=== PATIENT | female | born 1960 | race Asian ===

== ENCOUNTER 2020-07-28 15:55 | Emergency (ER) | payer OTHER, SELFPAY ==
[~2020-07-28] VITALS: Ht 157.5 cm; Wt 57.2 kg
[2020-07-28 15:59] VITALS: Ht 157.5 cm; Wt 57.2 kg
[2020-07-28 16:38] VITALS: BP 156/87
== END 2020-07-28 16:38 | disposition home or self-care (01) ==
LOC: ED 15:55
DX: U07.1 COVID-19 (principal); E11.9 Type 2 diabetes mellitus without complications; E78.00 Pure hypercholesterolemia, unspecified
CPT/HCPCS: U0003

== ENCOUNTER 2020-08-02 10:48 | Emergency (ER) | payer OTHER ==
[~2020-08-02] VITALS: Ht 157.5 cm; Wt 54.9 kg
[2020-08-02 14:22] VITALS: BP 161/85
[2020-08-02] MEDS ORDERED: COZAAR100 MG PO (22:03)
[2020-08-02] MEDS ORDERED: FENOFIBRATE130 M1 PO (22:06)
[2020-08-02] MEDS ORDERED: VYTORIN1 TAB PO (22:07)
[2020-08-02] MEDS ORDERED: FORTAMET500 M1 PO (22:08)
[2020-08-02] MEDS ORDERED: EVI60 PO (22:08)
== END 2020-08-02 14:22 | disposition home or self-care (01) ==
LOC: ED 10:48
DX: J98.11 Atelectasis (principal); U07.1 COVID-19; I10 Essential (primary) hypertension; E11.9 Type 2 diabetes mellitus without complications; E78.00 Pure hypercholesterolemia, unspecified

== ENCOUNTER 2020-08-02 16:32 | Inpatient (IN) | payer OTHER, SELFPAY ==
[~2020-08-02] VITALS: Ht 157.5 cm; Wt 58.5 kg
[2020-08-02 16:50] VITALS: Ht 157.5 cm; Wt 58.5 kg
--- NOTE | 2020-08-02 17:35 | NUR ---
PT WALKED TO ROOM WITHCO SOB INCREASED. HX OF COVID+. DM. PT WAS JUST D/C'D HOME FROM HOSPITAL. FEELING OF SOB INCREASED THEN COME BACK. PT WAS A/OX4, SPEAKS FULL SENTENCES, FOLLOWS COMMAND, SOB, BUT BREATHING EVEN. DENIES ABD PAIN. PT AMBULATES FREELY ON FLOOR.
--- NOTE | 2020-08-02 18:39 | NUR ---
SWAP DONE. URINE SAMPLE COLLECTED AND SENT.
[2020-08-02 18:41] LABS: BASOPHIL % 0.2 % (0-2); PLATELET COUNT 277 x10^3mcL (130-400); RED CELL DISTRIBUTION WIDTH 13.1 % (11.5-14.5)
[2020-08-02 19:03] LABS: CALCIUM 10.4 mg/dL (8.5-10.1); CARBON DIOXIDE 23.9 mmol/L (21-32); CHLORIDE SERUM 100 mmol/L (98-107); CREATININE SERUM 0.9 mg/dL (0.6-1.0); GFR1 > 60 mL/min; GLUCOSE SERUM 117 mg/dL (74-106); POTASSIUM SERUM 4.2 mmol/L (3.5-5.1); SODIUM SERUM 136 mmol/L (136-145)
--- NOTE | 2020-08-02 19:05 | NUR ---
REPORT RECEIVED FROM SALES FLOOR TEAM LEADER FOR CONTINUITY OF CARE. PATIENT IN ISOLATION ROOM. STABLE CONDITION.
[2020-08-02 19:12] LABS: ALBUMIN 4.1 g/dL (3.4-5.0); ALKALINE PHOSPHATASE 62 U/L (46-116); ALT/SGPT 60 U/L (14-59); AST/SGOT 48 U/L (15-37); BILIRUBIN TOTAL 0.32 mg/dL (0.20-1.00); C REACTIVE PROTEIN 2.2 mg/dL (<=0.9); LACTIC DEHYDROGENASE (LDH) 241 U/L (100-190); TOTAL PROTEIN, SERUM 8.2 g/dL (6.4-8.2)
[2020-08-02 19:21] LABS: microscopic required? NO
[2020-08-02 19:33] LABS: UA SPECIFIC GRAVITY >=1.030 (1.005-1.035); urine erythrocyte NEGATIVE (NEGATIVE)
--- NOTE | 2020-08-02 21:03 | NUR ---
PATIENT EXPRESSED DIFFICULTY BREATHING. PATIENT REQUESTED OXYGEN ON NASAL CANNULA. PLACED PATIENT ON 2L NC
--- NOTE | 2020-08-02 21:30 | NUR ---
REPORT GIVEN TO GRACIELA GARCIA FOR CONTINUITY OF CARE. PATIENT AWARE OF ADMISSION.
[2020-08-02] MEDS ORDERED: COZAAR100 MG PO (22:03)
[2020-08-02] MEDS ORDERED: FENOFIBRATE130 M1 PO (22:06)
[2020-08-02] MEDS ORDERED: VYTORIN1 TAB PO (22:07)
[2020-08-02] MEDS ORDERED: EVI60 PO (22:08)
[2020-08-02] MEDS ORDERED: FORTAMET500 M1 PO (22:08)
[2020-08-02 23:02] VITALS: BP 124/66
--- NOTE | 2020-08-02 23:16 | NUR ---
REC'D PT FROM ED VIA [facility]H ACCOMPANIED BY RN. PT ADM WITH CC OF SOB R/T COVID, BODY ACHES, CHILLS. AAOX4, SPEECH CLEAR, FOLLOWS COMMANDS. TELE 7. DENIES CP, DIZZINESS, OR PALPITATIONS. C/O MILD GIBSON (TOLERABLE) AND SOB UPON AMBULATION. REPORTS PRODUCTIVE COUGH- UNKNOWN SPUTUM COLOR. ABD SOFT/ROUND. DENIES ABD PAIN, TENDERNESS, OR N/V. C/O DIARRHEA. VOIDING FREELY. AMBULATORY. SKIN INTACT. IV TO LAC, SITE WNL. CALL LIGHT WITHIN REACH, BED AT LOWEST POSITION. ORIENTED TO DEVICES AND SURROUDNINGS. REPORT GIVE TO GENE OWENS.
--- NOTE | 2020-08-03 01:49 | NUR ---
PT IS A NEW ADMIT FROM ED WITH DX +COVID. A/O X 4 AND IN NO ACUTE DISTRESS. PT WITH DRY COUGH BUT ON ROOM AIR WITH O2 SAT WNL. TELE SR. ORIENTED PT TO ROOM AND INSTRUCTED TO USE CALL LIGHT TO CALL FOR ASSISTANCE. NORMAL SALINE GIVEN FOR CONTACT LENSES. WILL CONTINUE TO MONITOR.
[2020-08-03 05:57] VITALS: BP 116/65
--- NOTE | 2020-08-03 06:29 | NUR ---
PT CURRENTLY RESTING IN BED IN NO ACUTE DISTRESS. VITAL SIGNS STABLE. NO COMPLAINTS OF PAIN OR DISCOMFORT. BLOOD SUGAR 99.
[2020-08-03 07:06] LABS: BASOPHIL % 0.5 % (0-2); PLATELET COUNT 242 x10^3mcL (130-400)
[2020-08-03 08:53] VITALS: BP 111/66
[2020-08-03 12:15] VITALS: BP 111/70
--- NOTE | 2020-08-03 13:47 | NUR ---
The patient was seen sleeping at the time of shift change. She is alert and oriented x4. The patient states she is fatigued. Vital signs taken, temp. of 100.0F, O2 sat.= above 94%, no SOB noted, the patient says she has generalized aches all throughout her body. I gave her tylenol 650mg. po. per MD orders. The patient made comfortable. Re-checked temperature= 98.2F after 45 minutes. The patient is currently sleeping. Blood sugar checked= 92 at 11:30AM. Encouraged the patient to eat lunch. Will continue to monitor. Call light within reach.
--- NOTE | 2020-08-03 14:45 | NUR ---
Explained to patient that she has NORCO 5/325mg. po. every 4 hours as needed for moderate to severe pain. She verbalized underestanding. Refused the [place] for now. Will continue to monitor patient. Call light within reach.
--- NOTE | 2020-08-03 16:22 | NUR ---
THE PATIENT COMPLAINED OF HEADACHE AND SHOULDER PAIN WELL, 7/10 PAIN. GAVE NORCO PER MD ORDERS FOR NEEDED PAIN MEDICATION. VITAL SIGNS TAKEN, ALL WITHIN NORMAL LIMITS. SHE IS ALERT AND ORIENTED X4. SHE HAS NO SOB NOTED, O2 SATURATION IN ROOM AIR IS 95%. THE PTIENT STATES THAT SHE FEELS BETTER AFTER 30-45 MINUTES AFTER THE NORCO WAS GIVEN. PATIENT MADE COMFORTABLE. CALL LIGHT WITHIN REACH.
[2020-08-03 17:36] VITALS: BP 111/56
--- NOTE | 2020-08-03 19:30 | NUR ---
RECEIVED PT FROM DAY SHIFT RN. PT AA&O X4. PT DENIES CHEST PAIN OR DISCOMFORT AT THIS TIME. PULSES REGULAR AND NO EDEMA NOTED. LUNG SOUNDS CLEAR UPPER LOBES, DIMINISHED BASES. PT ON ROOM AIR WITH O2 SAT94%.BOWEL SOUNDS ACTIVE ALL 4 HOANG. PT APPEARS WEAK. AMBULATORY WITH MINIMAL ASSISTING. IV SITE INTACT AND PATENT, NO REDNESS OR SWELLING NOTED. INSTRUCTED PT TO USE CALL LIGHT AND PHONE. WILL CONTINUE TO [id number] PT.
--- NOTE | 2020-08-03 21:25 | NUR ---
PT C/O BODY ACHING 5/10, MEDICATION TYLENOL PO GIVEN. WILL MONITOR PT.
[2020-08-03 21:35] VITALS: BP 107/60
--- NOTE | 2020-08-03 22:29 | NUR ---
RECHECKED ON PT. PT RESTING IN BED. NO S/S OF DISTRESS NOTED. PT RESPRATION EVEN, NO SOB NOTED.
[2020-08-04 05:33] VITALS: BP 112/67
--- NOTE | 2020-08-04 06:52 | NUR ---
PT RESTING WELL DURING SHIFT. NO S/S OF DIRSTRESS NOTED. DENIES CHEST PAIN OR SOB AT THIS TIME. CALL LIGHT WITHIN REACH. WILL ENODRSE CARE TO DAY SHIFT RN.
--- NOTE | 2020-08-04 07:30 | NUR ---
RECEIVED PATIENT IN BED IN ISOLATION FOR COVID+. ALERT AND ORIENTED, GENERALIZED WEAKNESS NOTED. HL PATENT FLUSHED WELL. RESP EVEN AND UNLABORED ON ROOM AIR. LUNGS DIMIINISHED. PATIENT C/O SOB ON EXERTION. POOR APPETITE. TEMP 101.1. WILL START COOLING MEASURES AND GIVE TYLENOL. NO ACUTE DISTRESS NOTED WILL CONTINUE TO MONITOR.
[2020-08-04 07:34] LABS: BASOPHIL % 0.4 % (0-2); PLATELET COUNT 233 x10^3mcL (130-400); RED CELL DISTRIBUTION WIDTH 13.2 % (11.5-14.5)
[2020-08-04 08:31] VITALS: BP 123/74
[2020-08-04 12:18] VITALS: BP 115/70
--- NOTE | 2020-08-04 14:09 | NUR ---
PATIENT REMAINS IN BED. TEMP NOW IS 98.3. APPEARS TO BE RESTING WELL AT THIS TIME. NO ACUTE RESP DISTRESS NOTED. WILL CONTINUE TO MONITOR.
--- NOTE | 2020-08-04 16:11 | NUR ---
PATIENT'S PLAN OF CARE WAS DISCUSSED AND REVIEWED WITH DINING SERVICE SUPERVISOR:KORIN TONY. I HAVE REVIEWED THE DATA COLLECTION BY DINING SERVICE SUPERVISOR (NAME):KORIN TONY. ENTERED ON (DATE/TIME):08/04/20. I CONCUR WITH THE DATA AND ANY EXCEPTIONS OR COMMENTS ARE LISTED BELOW:
[2020-08-04 17:25] VITALS: BP 133/74
--- NOTE | 2020-08-04 17:43 | NUR ---
PATIENT'S TEMP IS 102.2. COOLING MEASURES STARTED AND TYLENOL PO GIVEN. WILL MONITOR FOR EFFECT.
--- NOTE | 2020-08-04 18:43 | NUR ---
PAITENT IN BED WITH COOLING MEASURES IN PROGRESS. PATIENT REFUSED DINNER TRAY AT THIS TIME.
[2020-08-04 21:16] VITALS: BP 120/66
--- NOTE | 2020-08-04 22:54 | NUR ---
LATE ENTRY 19:50 PT RECEIVED LYING IN BED ON L SIDE RESTING. PT APPEARS FATIGUE AND HAS MUILD GENERALIZED WEAKNESS BUT REMAINS AMBUALTORY WITH STEADY GAIT. A/OX4, CALM AND COOPERATIVE. TELE 7, SR, HR 78, DENIES CHEST PAIN, DIZZINESS AND LIGHTHEADEDNESS. RESPIRATIONS EVEN UNLABORED, RA, LUNG SOUNDS DIMINSHED TO BILATERAL BASES, DRY COUGH. PT REPORTS SOB WITH EXERTION BUT DENIES SOB AT REST. PT DENIES N/V/CONSTIATIOIN/DIARRHEA. DENIES URINARY ISSUES. SKIN INTACT. DENIES PAIN. SL LAC 22G, PATENT, NO COMPLICATIONS TO SITE. BED IN LOWETS POSITOIN, SIDE RAILS X 2, CALL LIGHT WITHIN REACH
[2020-08-05 05:15] VITALS: BP 110/67
--- NOTE | 2020-08-05 06:12 | NUR ---
PT SLEEPING ON L SIDE, EASILY AROUSABLE TO VERBAL STIMULI. PT REMAINS A/OX4 AND ON RA SATING 93%. PT DENIES SOB AT REST. TELE 7, LEADS IN PLACE, NSR. NO FALLS OR INJURIES SUSTAINED DURING SHIFT. PT C/O PAIN X 1 TO HEAD AND NECK, NORCO 5/325MG ADMISNTERED ORDERED. CXR COMPLETED. BED IN LOWEST POSITION, SIDE RAILS X 2, CALL LIGHT WITHIN REACH
[2020-08-05 06:52] LABS: BASOPHIL % 0.4 % (0-2); PLATELET COUNT 264 x10^3mcL (130-400); RED CELL DISTRIBUTION WIDTH 13.1 % (11.5-14.5)
[2020-08-05 07:17] LABS: C REACTIVE PROTEIN 2.3 mg/dL (<=0.9)
--- NOTE | 2020-08-05 07:30 | NUR ---
RECEIVED PAIENT IN BED IN ISOLATION FOR + COVID. ALERT AND ORIENTED GENERALIZED WEAKNESS NOTED. HL PATENT LEFT A/C. RESP EVEN AND UNLABORED, LUNGS DIMINISHED. DRY COUGH NOTED, SOB ON EXERTION. ON ROOM AIR, SAT 93%. WILL CONTINUE TO MONITOR.
[2020-08-05 08:51] VITALS: BP 129/74
[2020-08-05 11:13] VITALS: BP 122/70
--- NOTE | 2020-08-05 12:03 | NUR ---
PATIENT'S PLAN OF CARE WAS DISCUSSED AND REVIEWED WITH CLASSROOM INSTRUCTIONAL AIDE:KORIN TONY. I HAVE REVIEWED THE DATA COLLECTION BY CLASSROOM INSTRUCTIONAL AIDE (NAME):KORIN TONY. ENTERED ON (DATE/TIME):08/05/20. I CONCUR WITH THE DATA AND ANY EXCEPTIONS OR COMMENTS ARE LISTED BELOW:
--- NOTE | 2020-08-05 14:09 | NUR ---
Intervention/RDN Recommendation(s): 1) Continue regular diet (BG controlled) 2) Add glucerna BID (chocolate flavor per pt's preference) 3) Consider CCHO diet, if needed.
--- NOTE | 2020-08-05 14:09 | NUR ---
Initial Nutrition Assessment- Alea Chew RM 228B, HR Dx: COVID, PNA PMHx: HTN, DM, high cholesterol PSHx: (MYAH-BSO, trigger finger sx) Labs: glucose: 117H, no A1C available Meds: cozaar, decadron, D50% PRN, Humulin, lovenox, norco, Tessalon perles, robitussin DM syrup, tricor, Tylenol, zetia Diet: regular PO Intakes: no nutrition flowsheets available Ht: 157.48 cm, 5 ft 2 inch Wt: 58.513 kg/128.7 lbs BMI: 23.6 kg/m2 IBW: 110 (99-121 lbs) %IBW: 117% UBW: unknown Age: 60 Food Allergies: NKFA Skin: intact, Mtat: 17 Edema: none GI: ABD soft bowel sounds active, last BM: 08/03 Note (08/05/20): per H&P- "60 year old [place] female with PMH of HTN, DM, high cholesterol presenst to ER with 3 days of fevers, chills, generalized weakness, cough, body aches, diarrhea, and SOB. No loss of taste or smell. She has family members who had COVID 19 and she herself tested positive yesterday. She was seen in ER yesterday and was sent home but developed fever, chills and SOB and was brought back to ER. In ER, BP 123/75, HR 93 bpm, temp 100.2 F, SpO2 93% RA. Labs: WBC 4.6, hgb 12.7, d-dimer <100, coronavirus PCR positive. Influenza A&B negative. CXR - small peripheral patchy infiltrates." At time of visit, pt's nurse was in the COVID area. Called pt as nursing station. Pt reported sometimes it is difficult to eat from coughing. Pt's nurse also reported pt has a hard time eating when pt is fatigued. Pt's nurse also reported pt ate a little more today than yesterday. Pt wants to try glucerna shake in chocolate flavor to aid in PO intake. Trigger: potential risk DX, poor PO intake > 3 days Problem with: N/V/D/C: no N/V/D per pt Problems with: Chewing/Swallowing: no Current appetite: pt reported food isn't appetizing, no loss of taste per pt Recent wt changes: unknown %wt change: n/a Vitamin/Supplement: pt reported she was taking vitamin C, zinc and not sure if pt reported she took vitamin D or vitamin E. it was difficult to hear the pt on the phone. Special Diet at Home: regular diet at home Physical activity: per pt she was starting to exercise, but stopped, unsure what type of exercise due to not being able to hear pt on the phone Education: no education provided to the pt at this time due to pt in isolation, difficulty hearing pt on the phone Estimated Nutritional Needs Based on IBW of 110 lbs (50 kg) Energy: 0459-1502 kcal/d (30-35 kcal/kg for infection) Protein: 50-65 (1.0-1.3 g/kg for infection) Fluid: 1383-7431 mL/d (1 mL/kcal) or per MD Nutrition Diagnosis 1) increased protein and energy needs related to infection as evidenced by COVID-19 diagnosis, coronavirus PCR positive 2) inadequate oral intake related to infection as evidenced by lack of appetite, food does not seem appetizing per pt, coughing & fatigue Intervention/RDN Recommendation(s): 1) Continue regular diet (BG controlled) 2) Add glucerna BID (chocolate flavor per pt's preference) 3) Consider CCHO diet, if needed. Monitor/Evaluate Goal: have pt meet 75% of estimated nutrient needs (not met, ongoing) Monitor: PO intake, Labs, Skin integrity, Weights. F/U in 3-5 days as MR on 08/08-
[2020-08-05 16:37] VITALS: BP 115/71
--- NOTE | 2020-08-05 16:58 | NUR ---
PATIENT REMAINS IN BED TALKING ON HER PHONE. ALERT AND ORIENTED. O2 SAT 92% ON ROOM AIR. PATIENT INSTRUCTED TO PRONE INSTRUCTED. PATIENT VERBALIZES UNDERSTANDING, BUT WILL ONLY TURN SLIGHTLY TO HER SIDE AT THIS TIME. NO COOPERATING WITH SITTING UP OR PRONING. REQUIRES FREQUENT REMINDERS AND ENCOURAGEMENT. CONTINUES TO HAVE OCCAS DRY COUGH.
--- NOTE | 2020-08-05 18:33 | NUR ---
PATIENT COUGHING MEDICATED WITH ROBITUSSIN ORDERED. CALL PLACED TO DR GRACE FOR R.T. PROTOCOL., NEW ORDER RECEIVED FOR R.T. PATIENT STILL REFUSES TO PRONE. WILL SIT UP IN BED, AND TURN ON HER SIDE. REQUIRES MUSH ENCOURAGEMENT.
[2020-08-05 19:18] VITALS: BP 115/71
--- NOTE | 2020-08-05 20:01 | NUR ---
IN BED NO RESP DISTRESS NOTED, ON RA SAT 94, TELE NSR HR 77. CALL LIGHT WITHTIN PT'S REACH .WILL CON'T TO MONITOR AND ASSIST PT WITH CARE .
[2020-08-05 21:30] VITALS: BP 101/56
--- NOTE | 2020-08-06 01:44 | NUR ---
IN BED WITH EYES CLOSED , TELE NSR .
[2020-08-06 06:15] VITALS: BP 104/59
--- NOTE | 2020-08-06 06:46 | NUR ---
NO CHANGES , PT DENY PAIN SOB , TELE NSR . HL PATENT .
[2020-08-06 07:24] LABS: BASOPHIL % 0.9 % (0-2); PLATELET COUNT 330 x10^3mcL (130-400)
--- NOTE | 2020-08-06 07:43 | NUR ---
RECEIVED PATIENT IN BED, AWAKE ALERT AND ORIENTED. HL PATENT. RESP EVEN AND UNLABORED. GENERALIZED WEAKNESS NOTED. PATIENT USING BSC PRN. NO ACUTE DISTRESS NOTED AT THIS TIME TELE 7 NSR. WILL CONTINUE TO MONITOR.
[2020-08-06 08:21] VITALS: BP 114/68
--- NOTE | 2020-08-06 09:35 | NUR ---
PATIENT IS IN BED, C/O HAVING A H/A 5/10 ON THE PAIN SCALE. MEDICATED WITH TYLENOL PO ORDERED. WILL MONITOR FOR EFFECT.
--- NOTE | 2020-08-06 12:11 | NUR ---
R.T. PLACED PATIENT ON O2 AT 2L VIA N/C. SAT 94%. PATIENT REMAINS IN BED APPEARS TO BE RESTNG WELL. NO FURTHER C/O H/A. PATIENT NON COOPERATIVE WITH PRONING. WILL CONTINUE TO ENCOURAGE.
[2020-08-06 12:12] VITALS: BP 101/63
--- NOTE | 2020-08-06 13:44 | NUR ---
PATIENT'S PLAN OF CARE WAS DISCUSSED AND REVIEWED WITH MANOMETER TECHNICIAN:KORIN TONY. I HAVE REVIEWED THE DATA COLLECTION BY MANOMETER TECHNICIAN (NAME):KORIN TONY. ENTERED ON (DATE/TIME):08/06/20. I CONCUR WITH THE DATA AND ANY EXCEPTIONS OR COMMENTS ARE LISTED BELOW:
--- NOTE | 2020-08-06 15:18 | NUR ---
PATIENT REMAINS IN BED WITH O2 ON AT 2L VIA N/C. PER PATIENT SHE IS FEELING A LITTLE BETTER WITH THE O2 ON. NO ACUTE DISTRESS NOTED. ONLY OCCAS DRY COUGH NOTED. PATIENT DECLINED COUGH MED. WILL CONTINUE TO MONITOR.
[2020-08-06 16:20] VITALS: BP 110/67
--- NOTE | 2020-08-06 18:11 | NUR ---
PATIENT REMAINS IN BED. O2 SAT 96% ON 2L VIA N/C. COUGH HAS IMPROVED. NO ACUTE DISTRESS NOTED.
--- NOTE | 2020-08-06 20:02 | NUR ---
IN BED NO RESP DISTRESS NOTED, TELE NSR , HL PATENT FLUSHING WELL , CALL LIGHT WITHIN PT'S REACH , WILL CON'T TO MONITOR AND ASSIST PT WITH CARE .
[2020-08-06 21:51] VITALS: BP 122/60
--- NOTE | 2020-08-07 03:12 | NUR ---
PT IN BED WITH EYES CLOSED , TELE NSR.
[2020-08-07 05:42] VITALS: BP 114/69
--- NOTE | 2020-08-07 06:49 | NUR ---
NO CHANGES OF CINDITION NOTED, ALL SCHEDULE MEDS GIVEN NO REACTION NOTED, TELE NSR.
[2020-08-07 08:11] VITALS: BP 108/62
[2020-08-07 08:30] LABS: BASOPHIL % 0.2 % (0-2); PLATELET COUNT 318 x10^3mcL (130-400); RED CELL DISTRIBUTION WIDTH 13.2 % (11.5-14.5)
--- NOTE | 2020-08-07 10:32 | NUR ---
RECEIVED REPORT FROM FLIGHT ENGINEER RN. PT IS ASSESSED, AO X4 LYING IN BED. PT IS ON 3L O2 VIA NC AND SATING AT 93%. PT C/O DRY COUGH AND SOB. APPEARS TO BE VERY WEAK. RUNNING SR 82 ON THE MONITOR. ALSO PT WITH POOR APPETITE, MANAGED TO EAT 25% OF HER BREAKFAST. NO C/O PAIN AT THIS TIME. WILL CONTINUE TO MONITOR O2 SATS CLOSELY THROUGHOUT THE SHIFT. CALL LIGHT IS WITHIN REACH AND PT ABLE TO CALL FOR ASSISTANCE.
[2020-08-07 12:48] VITALS: BP 125/67
--- NOTE | 2020-08-07 15:12 | NUR ---
SPOKE W/ AND INFORMED THAT LAST PCR DONE WAS AND HE DOESN'T WANT TO ORDER ANOTHER.
[2020-08-07 16:54] VITALS: BP 126/63
--- NOTE | 2020-08-07 19:30 | NUR ---
RECEIVED REPORT FROM DAY NURSE AND ALL QUESTIONS ANSWERED AND ASSUMED CARE AND TREATMENT.
--- NOTE | 2020-08-07 20:00 | NUR ---
RECEIVED PT LAYING IN BED AWAKE BUT WEAK. STATED SHES VERY WEAK.W/ NC AT 2L.MIN.TURNED TO SIDES AD DESTINY. PULSES PALPABLE. LUNGS DIMINISHED. ENCOURAGE TO DEEP BREATHING AND COUGHING.W/ POOR APPITITE.RESPIRATION NONLABORED. NO ACUTE DISTRESS NOTED.
--- NOTE | 2020-08-07 20:00 | NUR ---
RECEIVED REPORT FROM DAY NURSE AND ALL QUESTION ANSWERED AND ASSUMED CARE AND TREATMENT.
[2020-08-07 22:16] VITALS: BP 111/67
--- NOTE | 2020-08-08 03:27 | NUR ---
SLEEP AT LONG INTERVALS.NO RESPIRATORY DIFFICULTY.RESTING WELL.
[2020-08-08 05:23] LABS: BASOPHIL % 0.1 % (0-2); PLATELET COUNT 361 x10^3mcL (130-400); RED CELL DISTRIBUTION WIDTH 13.2 % (11.5-14.5)
[2020-08-08 05:58] LABS: ALKALINE PHOSPHATASE 105 U/L (46-116); ALT/SGPT 99 U/L (14-59); AST/SGOT 64 U/L (15-37); BILIRUBIN DIRECT 0.13 mg/dL (0.0-0.2); BILIRUBIN TOTAL 0.38 mg/dL (0.20-1.00); CALCIUM 9.3 mg/dL (8.5-10.1); CARBON DIOXIDE 26.1 mmol/L (21-32); CHLORIDE SERUM 103 mmol/L (98-107); CREATININE SERUM 0.8 mg/dL (0.6-1.0); GFR1 > 60 mL/min; GLUCOSE SERUM 116 mg/dL (74-106); MAGNESIUM 2.2 mg/dL (1.8-2.4); POTASSIUM SERUM 3.8 mmol/L (3.5-5.1); SODIUM SERUM 139 mmol/L (136-145); TOTAL PROTEIN, SERUM 6.9 g/dL (6.4-8.2)
[2020-08-08 06:01] LABS: ALBUMIN 2.8 g/dL (3.4-5.0)
[2020-08-08 06:16] VITALS: BP 108/63
[2020-08-08 09:00] VITALS: BP 96/57
--- NOTE | 2020-08-08 10:27 | NUR ---
RECEIVED REPORT FROM RESEARCH ADMINISTRATOR RN. PT ASSESSED, REMAINS ON 3L NC AND C/O SOB. PT APPEARS WEAK, LYING IN BED AND ONLY MANAGED TO EAT 10% OF HER BREAKFAST. PT ENCOURAGED TO EAT MORE AND TRY SITTING UP MORE. WAS ABLE TO SIGN CONSENT FOR CONV PLASMA. WILL CONTINUE TO MONITOR THROUGHOUT THE SHIFT. CALL LIGHT WITHIN REACH AND PT ENCOURAGED TO CALL FOR ASSISTANCE.
[2020-08-08 13:00] VITALS: BP 109/63
[2020-08-08 16:45] VITALS: BP 104/56
--- NOTE | 2020-08-08 16:45 | NUR ---
PT CALLED TO SAY SHE IS HAVING SOME HIVES, AND ITCHING THE WHOLE BODY. WENT TO PATIENT'S ROOM AND EVIDENTLY PATIENT WAS HAVING AN ADVERSE REACTION FROM THE PLASMA TRANSFUSION. PLASMA TRANSFUSION STOPPED, NORMAL SALINE INFUSED AND CHARGE NURSE CARIDAD MADE KNOWN. ADHESIVE BANDAGE MACHINE OPERATOR PAGED FOR SOME BENADRYL, AND NEW ORDERS RECEIVED. BENADRYL 25CC GIVEN AND PT TOLD THE ITCHY AND HIVES WILL SLOWLY START TO GO AWAY. URINE SAMPLE COLLECTED, AND THE PLASMA AND ALL TUBINGS COLLECTED TO BE SENT BACK TO THE LAB. VITAL SIGNS POST ADVERSE REACTION T97.2, HR80,BP104/56, 93% ON 3L NC AND RESP 22. WILL CONTINUE TO MONITOR PT, AND PT ENCOURAGED TO CALL CONTROL INSPECTOR LIGHT IF SHE FEELS WORSE.
[2020-08-08 18:20] LABS: microscopic required? NO
[2020-08-08 18:23] LABS: urine erythrocyte NEGATIVE (NEGATIVE)
--- NOTE | 2020-08-08 18:59 | NUR ---
PT CURRENTLY SLEEPING BUT EASILY AROUSABLE. SAYS THE ITCHING IS SO MUCH BETTER. FIRST DOSE OF REMDESIVIR STARTED. O2 SATURATION AT 96% ON 3L NC. WILL ENDORSE CARE TO INCOMING CONTROL AND RECOVERY COMBAT RESCUE RN FOR CONTINUITY OF CARE.
--- NOTE | 2020-08-08 20:00 | NUR ---
RECIEVED PATIENT IN BED RESTING. NO RESP DISTRESS NOTED. PATIENT VERY FATIGUED AND TIRED. DENIES PAIN AT THIS TIME. WILL CONTINUE TO MONITOR FOR SAFETY. Rob WAGNER RN.
[2020-08-08 21:10] VITALS: BP 95/60
[2020-08-09 05:30] VITALS: BP 99/62
--- NOTE | 2020-08-09 06:31 | NUR ---
PATIENT RESTING COMFORTBALY WITH NO RESP DISTESS NOTED. PATIENT STATES SHE SLEPT WELL THROUGH THE NIGHT. Rob WAGNER RN.
[2020-08-09 07:37] LABS: BILIRUBIN DIRECT 0.1 mg/dL (0.0-0.2); BILIRUBIN TOTAL 0.3 mg/dL (0.20-1.00); TOTAL PROTEIN, SERUM 6.4 g/dL (6.4-8.2)
[2020-08-09 07:38] LABS: ALBUMIN 2.6 g/dL (3.4-5.0)
[2020-08-09 08:21] VITALS: BP 94/50
--- NOTE | 2020-08-09 09:58 | NUR ---
PATIENT WAS LAYING IN BED ASLEEP, WOKE UP TO TAKE MORNING MEDS. PATIENT VITALS STABLE, NO RESP DISTRESS NOTED, 96% ON 2L NC. NO PAIN OR OTHER COMPLAINTS AT THIS TIME.WILL CONTINUE MONITORING.
[2020-08-09 13:19] VITALS: BP 95/57
--- NOTE | 2020-08-09 13:32 | NUR ---
PATIENT RESTING IN BED. PATIENT STATED IT IS EASIER FOR HER TO EAT FOOD THAT IS MORE BLAND BUT WOULD NOT WANT MECHANICAL SOFT. PATIENT WOULD WANT NUTRITIONAL SHAKES. V/S SIGNS, CHEST RISING SYMMETRICALLY. NO COMPLAINTS OF PAIN OR DISCOMFORT. WILL INFORM GENERAL ENGINEERING TEACHER ON PATIENTS INPUT ON HER APPETITE.
--- NOTE | 2020-08-09 16:02 | NUR ---
Follow-up Nutrition Assessment: [address] AKSHAT CIFUENTES 60F MR Dx: COVID, PNA PMHx: HTN, DM, high cholesterol Labs: (08/09) ABL 2.6L, AST 38H, ALT 83H, ALK 102H (08/08) BG 116H, * NA, K, CL, BUN, Cr, CA, Mg, WBC, RBC, H/H, PLT WNL (08/03) BH, * A1C, lipid panel no reported Meds: Remdesevir, cozaar, decadron, D50% PRN, Humulin, Lovenox, [place], Tessalon perles, Robitussin DM Syrup, Tricor, Zetia Diet: regular PO Intakes: (08/05) B: 40%, L: 50%, D: 10%, (08/06) B: 20%, (08/08) B: 50%, L: 35%, D: 20%, Average 32% x 7 meals Weights: (08/09) 58.351 kg, (08/05) 58.513 kg BM: 08/07 Skin: intact Matt: 17 Edema: no noted Per last RD note (08/05/20): per H&P- "60-year-old [place]isian female with PMH of HTN, DM, high cholesterol presenst to ER with 3 days of fevers, chills, generalized weakness, cough, body aches, diarrhea, and SOB. No loss of taste or smell. She has family members who had COVID 19 and she herself tested positive yesterday. She was seen in ER yesterday and was sent home but developed fever, chills and SOB and was brought back to ER. In ER, BP 123/75, HR 93 bpm, temp 100.2 F, SpO2 93% RA. Labs: WBC 4.6, hgb 12.7, d-dimer <100, coronavirus PCR positive. Influenza A&B negative. CXR - small peripheral patchy infiltrates." At time of visit, pt's nurse was in the COVID area. Called pt as nursing station. Pt reported sometimes it is difficult to eat from coughing. Pt's nurse also reported pt has a hard time eating when pt is fatigued. Pt's nurse also reported pt ate a little more today than yesterday. Pt wants to try Glucerna shake in chocolate flavor to aid in PO intake. RD note (08/09/20): Per progress note (08/08): pt continues 3 L NC. Unable to visit pt d/t COVID-19+. Pt's RN reported that pt does not have appetite, and she did not touch her breakfast this morning. RN reported that pt only sleeps. No n/v/d/c noted by RN. Pt's RN stated that pt coughs sometimes when eating, but no swallow difficulties have been noticed. Per RN, pt would like to try softer texture foods; such as Jello or applesauce. Estimated Nutritional Needs Based on IBW of 110 lbs (50 kg) Energy: 6985-8210 kcal/d (30-35 kcal/kg for viral infection) Protein: 50-65 (1.0-1.3 g/kg for viral infection) Fluid: 8894-3398 mL/d (1 mL/kcal) or per MD Nutrition Diagnosis 1. Increased protein and energy needs related to infection as evidenced by COVID-19 diagnosis, coronavirus PCR positive (ongoing). 2. Inadequate oral intake related to infection as evidenced by lack of appetite, food does not seem appetizing per pt, coughing & fatigue (ongoing). Intervention/RDN Recommendation(s): 1. Continue Regular diet. 2. Recommended Glucerna BID (chocolate flavor per pt's preference) for additional 440 kcal and 20 g protein 3. Consider CCHO 60 gms diet, if pt's PO intake improves 4. Recommend encourage PO intake. Monitor/Evaluate Goal: have pt meet 75% of estimated nutrient needs (not met, ongoing) Monitor: PO intake, Labs, Skin integrity, Weights. F/U in 2-3 days as high risk on 08/11-
[2020-08-09 16:16] VITALS: BP 95/57
--- NOTE | 2020-08-09 18:41 | NUR ---
PATIENT RECEIVED SECOND BAG OF RENDEZEVIR TODAY. PATIENT VITALS STABLE. PATIENT BG WAS 138 FOR 1630 NO INSULIN COVERAGE WAS NEEDED. IV IS INTACT. NO COMPLAINTS OF PAIN OR DISCOMFORT. GLUCERNA WAS GIVEN TO PATIENT AND PATIENT TOLERATED IT. ALL NEEDS MET FOR NOW. WILL ENDORSE REPORT TO [facility].
--- NOTE | 2020-08-09 20:00 | NUR ---
RECEIVED PATIENT IN BED RESTING, ON O2 2 LITER VIA N/C , NO DISTRESS NOTED. NO C/O ANY PAIN OR DISCOMFOR AT THIS TIME. NEEDS BEING MET.
[2020-08-09 22:32] VITALS: BP 99/60
--- NOTE | 2020-08-09 23:20 | NUR ---
LOVENOX 60 MG SQ GIVEN AT ABDOMEN, NO S/S OF BLEEDING NOTED.
--- NOTE | 2020-08-10 05:58 | NUR ---
PATIENT STILL SLEEPING , WOKE UP FOR ACCUCHECK BS=93 NO COVERAGE, PATIENT STATES SHE STILL FEEL TIRED. NO DISTRESS WITH 3 LITER O2 ON, DENIES ANY PAIN AT THIS TIME.
[2020-08-10 06:21] VITALS: BP 97/53
[2020-08-10 07:59] LABS: BILIRUBIN DIRECT 0.1 mg/dL (0.0-0.2); BILIRUBIN TOTAL 0.3 mg/dL (0.20-1.00)
[2020-08-10 08:00] LABS: ALBUMIN 2.5 g/dL (3.4-5.0); TOTAL PROTEIN, SERUM 5.9 g/dL (6.4-8.2)
[2020-08-10 08:37] VITALS: BP 96/60
--- NOTE | 2020-08-10 09:18 | NUR ---
PATIENT RESTING IN BED. PATIENT VITALS STABLE O2 MAINTAINING AT 93% 3L NC. PATIENT STATED FEELING OKAY, BUT FEELS LIKE HER HEALTH FLUCTUATES, SHE FEEELS OKAY THEN MIN LATER SHE DOESNT. PATIENT WAS ABLE TO EAT SOME BREAKFAST 50% TRYING TO EAT MORE ALTHOUGH SHE HAS LOW APETITE. NO COMPLAINTS OF PAIN OR OTHER DICOMFORT AT THIS TIME. WILL CONT MONITORING.
--- NOTE | 2020-08-10 16:07 | NUR ---
DIETITIAN CO-SIGN The Nutrition Notes documented by the Demand Manager have been reviewed. Reviewed/Co-Signed by: Reese Adan Documentation Done by: Alesia Mittal
--- NOTE | 2020-08-10 18:33 | NUR ---
PATIENTS 3RD BAG OF REMDEZEVIR GIVEN. PATIENT GOT READY TO HAVE DINNER. IV FIXED AND INTACT. NC 2L. PATIENTS VS STABLE.
--- NOTE | 2020-08-10 19:14 | NUR ---
RECIEVED PT FROM AM RN. CALLED INTO PTS ROOM, PT AWARE OF CHANGE OF SHIFT. NO CONCERNS AT THIS TIME. CALL LIGHT IN REACH, WILL FOLLOW UP WITH ASSESSMENT.
[2020-08-10 21:50] VITALS: BP 102/61
--- NOTE | 2020-08-10 22:05 | NUR ---
PT TOLERATED MEDICATIONS WELL. BLOOD GLUCOSE CHECKED AND COVERED PER SC. IV DRESSING CHANGED TO IV SITE. IV INTACT AND PATENT, NO REDNESS OR SWELLING, SALINE LOCKED. PT HAS NO CONCERNS AT THIS TIME. CALL LIGHT IN REACH, WILL CONTINUE TO MONITOR.
--- NOTE | 2020-08-11 04:55 | NUR ---
PT RESTING COMFORTABLY, NO SIGNS OF DISTRESS. CALL LIGHT IN REACH, WILL CONTINUE TO MONITOR.
[2020-08-11 06:03] VITALS: BP 97/54
--- NOTE | 2020-08-11 06:28 | NUR ---
PT SLEPT WELL THROUGHOUT THE NIGHT, REMAINED STABLE WITH NO SIGNS OF ACUTE DISTRESS. NO SIGNIFICANT CHANGES OVERNIGHT. PT REMAINS ON 3.5L NC SATTING WELL AT 94%. PT DENIES SOB AT THIS TIME. PT HAS NO CONCERNS AT THIS TIME. CALL LIGHT IN REACH, ENCOURAGED TO USE FOR ASSISTANCE. WILL CONTINUE TO MONITOR. WILL ENDORSE ALL CARE TO AM RN.
--- NOTE | 2020-08-11 08:00 | NUR ---
RECEIVED PATIENT ALERT AND ORIENTED TIMES FOUR. PATIENT HAS BEEN RESTING QUIETLY AND DENIES PAIN AT THIS TIME. PATIENT HAS DIMINISHED BREATH SOUNDS AND BOWEL SOUNDS ACTIVE. IV INTACT AND PATIENT HAS BEEN RECEIVING DECADRON AND WITHOUT ANY ADVERSE REACTION. BLOOD SUGAR THIS AM AT 99 AND NO COVERAGE WAS INDICATED. PATIENTT HAS SPOUSE IN THE NEXT BED BUT THEY DO NOT SEEM TO BE INTERACTING MUCH AT THIS TIME. PATIENT HAS TOLERATED DIET AND FLUIDS AND TAKE MEDICVATION OREDERED. PATIENT NEEDS ASSIST WITH OOB AND HAS A DRY CUGH. WILL CONTINUE TO MONTIOR INDICATED. HISTORY OF HIGH CHOLESTEROL, DIABETES AND HYPERTENSION NOTED.
[2020-08-11 08:33] LABS: ALBUMIN 2.7 g/dL (3.4-5.0); ALKALINE PHOSPHATASE 85 U/L (46-116); ALT/SGPT 58 U/L (14-59); AST/SGOT 21 U/L (15-37); BILIRUBIN DIRECT 0.12 mg/dL (0.0-0.2); BILIRUBIN TOTAL 0.32 mg/dL (0.20-1.00); CALCIUM 9.3 mg/dL (8.5-10.1); CARBON DIOXIDE 25.1 mmol/L (21-32); CHLORIDE SERUM 107 mmol/L (98-107); CREATININE SERUM 0.8 mg/dL (0.6-1.0); GFR1 > 60 mL/min; GLUCOSE SERUM 102 mg/dL (74-106); POTASSIUM SERUM 3.7 mmol/L (3.5-5.1); SODIUM SERUM 142 mmol/L (136-145); TOTAL PROTEIN, SERUM 6.4 g/dL (6.4-8.2)
[2020-08-11 08:38] LABS: BASOPHIL % 0.4 % (0-2); RED CELL DISTRIBUTION WIDTH 12.9 % (11.5-14.5)
[2020-08-11 08:40] LABS: PLATELET COUNT 427 x10^3mcL (130-400)
[2020-08-11 12:06] VITALS: BP 87/48
--- NOTE | 2020-08-11 12:59 | NUR ---
BLOOD SUGAR AT THIS TIME AT 134 AND NO COVERAGE WAS INDICATED.
--- NOTE | 2020-08-11 15:36 | NUR ---
PATIENT TALKING ON AND OFF ON THE PHONE. SHE DOES NTO APPEAR IN ANY DISTRESS BUT DOES APPEAR DEPRESSED SOMEWHAT. SPOUSE IN THE NEXT BED BUT NOT INTERACTING AT THIS TIME.
--- NOTE | 2020-08-11 15:53 | NUR ---
1. Recommend CCHO 60 g diet as tolerate. 2. Continue Glucerna BID (chocolate flavor per pt's preference) for additional 440 kcal and 20 g protein.
--- NOTE | 2020-08-11 15:53 | NUR ---
Follow-up Nutrition Assessment: Katey B AKSHAT CIFUENTES 60F MR Dx: COVID, PNA PMHx: HTN, DM, high cholesterol Labs: (08/11) ALB 2.7L, ALK 85H, RBC 4.07L, PLT 427H, Neut% 71.9H (08/09) ABL 2.6L, AST 38H, ALT 83H, ALK 102H (08/08) BG 116H, * NA, K, CL, BUN, Cr, CA, Mg, WBC, RBC, H/H, PLT WNL (08/03) BH, * A1C, lipid panel no reported Meds: Remdesevir, Cozaar, Decadron, D50% PRN, Humulin, Lovenox, [place], Tessalon perles, Tricor, Zetia Diet: regular PO Intakes: 60% - 80%, average 73% x 4 meals *PO intake significantly improved Weights: (08/11) 58.5 kg, (08/09) 58.35 kg, (08/05) 58.5 kg BM: 08/11 Skin: intact Matt: 17 Edema: no noted I/Os (ml): (08/11) 660/-=660, (08/10) 560/-=[address] (08/09/20): Per progress note (08/08): pt continues 3 L NC. Unable to visit pt d/t COVID-19+. Pt's RN reported that pt does not have appetite, and she did not touch her breakfast this morning. RN reported that pt only sleeps. No n/v/d/c noted by RN. Pt's RN stated that pt coughs sometimes when eating, but no swallow difficulties have been noticed. Per RN, pt would like to try softer texture foods; such as Jello or applesauce. RD note (08/11): Per progress note (08/11): Pt remains on 3LO2, continues with Remdesivir. Will arrange home O2. Pt was contacted via pt's bedside phone. Pt stated she has good appetite, but has some difficulty eating d/t she gets tires when eating. Pt denied any n/v/d/c today and last BM reported by pt was today. Pt requested to remove milk and pasta from her meals d/t she has lactose intolerance and does not like pasta. Additionally, pt stated she has been drinking the Glucerna. Lastly, pt's PO intake improved from average 43% to average 73% + ONS. Estimated Nutritional Needs Based on IBW of 110 lbs (50 kg) Energy: 4583-7298 kcal/d (30-35 kcal/kg for viral infection) Protein: 50-65 (1.0-1.3 g/kg for viral infection) Fluid: 4538-2986 mL/d (1 mL/kcal) or per MD Nutrition Diagnosis 1. Increased protein and energy needs related to infection as evidenced by COVID-19 diagnosis, coronavirus PCR positive (ongoing). 2. Inadequate oral intake related to infection as evidenced by lack of appetite, food does not seem appetizing per pt, coughing & fatigue (resolved) - pt's PO intake improved to average 73%, and pt has been drinking ONS BID. Intervention/RDN Recommendation(s): 1. Recommend CCHO 60 g diet as tolerate. 2. Continue Glucerna BID (chocolate flavor per pt's preference) for additional 440 kcal and 20 g protein Recommendation was provided to Dr. Arzate via page. will consider. Monitor/Evaluate Goal: have pt meet 75% of estimated nutrient needs (met) Monitor: PO intake, Labs, Skin integrity, Weights, ONS F/U in 3-5 days as moderate risk on 08/15-
[2020-08-11 15:54] VITALS: BP 101/53
--- NOTE | 2020-08-11 16:04 | NUR ---
DIETITIAN CO-SIGN The Nutrition Notes documented by the Rib Chopper have been reviewed. Reviewed/Co-Signed by: Reese Adan Documentation Done by: Alesia Hernandez
--- NOTE | 2020-08-11 16:35 | NUR ---
GAVE SIX UNITS OF REGULAR FOR BLOOD SUGAR OF 249. AWAITING REMDESIVIR TO GIVE ORDERED.
--- NOTE | 2020-08-11 17:40 | NUR ---
HUNG ANOTHER INFUSION OF REMDESIVIR ORDERED PATIENT IS AWARE OF INDICATED. RUNNING THE REMDESIVIR AND SO FAR TOLERATED WELL. SHE HAS BEEN WITH ANOTHER THREE DOSES AND ONE MORE WILL BE GIVEN TO COMPLETE THE TREATMENT. WILL HEPLOCK THE PATIENT POST THE INFUSION.
--- NOTE | 2020-08-11 19:40 | NUR ---
RECEIVED PT FROM DAY SHIFT RN. A&OX 4, PT ON TELE#7, DENIES CHEST PAIN OR DISCOMFORT AT THIS TIME. LUNG SOUNDS DIMINISHED AT BASES. PT ON O2 3.5L W/NC. BOWEL SOUNDS ACTIVE, ABDOMEN SOFT, AND NON-TENDER NOTED. DENIES N/V. SKIN WARM AND DAY, NO WOUNDS NOTED. IV SITE INTACT AND PATENT. INSTRUCTED PT TO USE CALL LGIHT AND PHONE, BED IN LOWER POSITION. WILL CONTINUE TO CARE AND MONITOR PT.
[2020-08-11 21:08] VITALS: BP 90/55
--- NOTE | 2020-08-12 02:41 | NUR ---
INTO CHECKED ON PT. PT RESTING IN BED. PT ON TELE#7, WITH SINUS BRADYCARDIA TO 55S, NO ACUTE CHANGES NOTED. PT ON O2 3.5L W/NC, O2SAT 94%. CALL LIGHT WITHIN REACH. BED IN LOWER POSITION, WILL CONTINUE TO MONITOR PT.
[2020-08-12 05:29] VITALS: BP 113/67
--- NOTE | 2020-08-12 06:38 | NUR ---
PT RESTED WELL DURING SHIFT. PT DENIES CHEST PAIN OR DISCOMFORT, DENIES N/V, DENIES SOB AT THIS TIME. PT ON O2 3.5L W/NC, O2SAT 96%. NO ACUTE CHANGES DURING SHIFT. ALL QUESTIONS AND CONCERNS ADDRESSED. ALL NEEDS MET AT THIS TIME. WILL ENDORSE CARE TO ONCOMING RN.
--- NOTE | 2020-08-12 08:00 | NUR ---
RECEIVED PATIENT ALERT AND ORIENTED TIMES FOUR. PAITENT STATES SHE IS BETTER BUT SHE SEEMS LISTLESS AND ITS AN EFFORT TO MOVE FOR HER. HER LUNGS ARE DIMINISHED AND BOWEL SOUNDS ACTIVE. SHE HAS BEEN ON 02 ORDERED AND ON REMDESIVIR AND DECADRON AND NO ADVERSE REACTION NOTED. PATIENT HAS VITALS AT THIS TIME AT 97.7, 98.2, 134/78, 92%. SHE HAS BEEN USING THE BEDSIDE COMODE AND SHE TOLERATED DIET AND IS EATTING BETTER TODAY. HER SPOUSE AT BEDSIDE AND THEY ARE NOT REALLY TALKING TO EACH OTHER. BRYANNAHAILEE KIKETD TO HAVE A REACTION TO [facility] CONVALESCANT PLASMA SO THE INFUSION WAS DISCONTINUED AT THAT TIME. SHE HAS NOTED LINEAR ATELECTAIS AND PULMONARY CONGESTION PER THE CHEST XRAY.HISTORY OF DIABETES, HIGH CHOLESTEROL AND OSTEOPOROSIS NOTED. SHE HAS ALSO HYPERENTION. COUGH HIS NON PRODUCTIVE. PULES ARE PALAPBLE TO ALL EXTRMTIES. BOWEL SOUNDS ARE ACTIVE AND PATIENT HAS BEEN WITH PLAN FO CARE FOR DISCHAREG TO HOME TODAY WITH HOME 02. AWAITING ARRANGMENTS.
[2020-08-12 08:01] VITALS: BP 94/55
[2020-08-12 09:16] LABS: BILIRUBIN DIRECT 0.12 mg/dL (0.0-0.2); BILIRUBIN TOTAL 0.3 mg/dL (0.20-1.00)
[2020-08-12 09:22] LABS: ALBUMIN 2.7 g/dL (3.4-5.0); TOTAL PROTEIN, SERUM 6.1 g/dL (6.4-8.2)
--- NOTE | 2020-08-12 12:00 | NUR ---
BLOOD SUGAR AT THIS TIME AT 148 AND NO COVERAGE WAS INDICATED.
[2020-08-12 12:27] VITALS: BP 102/53
[2020-08-12 15:59] VITALS: BP 107/63
--- NOTE | 2020-08-12 18:17 | NUR ---
GAVE INSULIN COVERAGE FOR THE BLOOD SUGAR OF 178. PATIENT RECEIVED THE LAST L DOSING OF REMDESIVIR INDICATED. SHE HAS BEEN ASKING ABOUT GOING HOME NO PLAN OR DISCHARGE ORDERS WERE MADE. DISCUSSED WITH THE CHARGE AND WILL BE DISCHARGED MOST LIKELY TOMORROW.
--- NOTE | 2020-08-12 18:48 | NUR ---
ADVISED THE PATIENT THAT THERE IS NO ORDER FOR DISCHARGE YET. PATIENT IS ALRIGHT IN STAYING ANOTHER NIGHT.
--- NOTE | 2020-08-12 19:15 | NUR ---
RECEIVED PT FROM DAY SHIFT RN. A&OX 4. PT ON TELE#7, NSR WITH 62BPM, PT DENIES CHEST PAIN OR DISCOMFORT AT THIS TIME. PT ON O2 3.5L W/NC, O2 SAT 95%, DENIES SOB. NO ACUTE CHANGES NOTED.PT APPEARS WEAK AND TIRED. INSTRUCTED PT TO USE CALL LIGHT AND PHONE WHEN NEEDS ASSISTANCE. BED IN LOWER POSITION. WILL CONTINUE TO MONITOR PT.
[2020-08-12 21:26] VITALS: BP 109/62
--- NOTE | 2020-08-12 23:10 | NUR ---
PT C/O COUGHING AND REQUESTING FOR MEDICATION. BENZONATATE 100MG PO PRN GIVEN. WILL REASSESS AND MONITOR PT.
--- NOTE | 2020-08-13 01:35 | NUR ---
INTO CHECKED ON PT. PT RESTING IN BED. PT RESPIRATION EVEN, ON O2 3.5L W/NC, O2 SAT 95%. NO DISTRESS NOTED AT THIS TIME. PT ON TELE MONITORING, SINUS BRADYCARDIA WITH 54 BPM. SAFETY MEASURES IN PL[address]. WILL CONTINUTE TO MONITOR PT.
--- NOTE | 2020-08-13 04:54 | NUR ---
RECHECKED ON PT. NO ACUTE CHANGE NOTED AT THIS TIME. PT HR REMAINS 55 TO 58 BPM, NO DISTRESS NOTED. PT RESPIRATORY EVEN, REMAINS ON O2 3.5L W/NC.
[2020-08-13 05:34] VITALS: BP 96/56
--- NOTE | 2020-08-13 07:08 | NUR ---
PT RESTED WELL DURING SHIFT. NO ACUTE CHANGE NOTED. PT DENIES CHEST PAIN OR DISCOMFORT AT THIS TIME. PT ON O2 3.5L W/NC, PT DENIES SOB. ALL NEEDS MET. SAFETY MEASURES IN PLACE. WILL ENDORSE CARE TO ONCOMING RN.
--- NOTE | 2020-08-13 08:00 | NUR ---
RECEIVED PATIENT WHO IS FEELING BETTER TODAY. SHE WANTS TO GO HOME. IV INTAC AND PATIENT HAS BEEN WAITIGN FOR DISCHARGE ORDERS. THE PATIEN HAS HER 02 CONCENTRATOR AT HOME AND THE TANK FOR PORTABLE HERE AT THE HOSPITAL. SHE RECEIVED HER LAST REMDESIVIR LAST NIGHT AND HAS NO ADVERSE REACTION. PATIENT HAS BEEN OOB AND TOELRATED WELL. SHE IS EATTING BETTER WELL HE BLOOD SUGAR THIS AM AT 113. GAVE DECADRON AND HER STOMACH MEDICATION, HER ZETIA AND HELD THE COZAR DUE TO BP IS ONLY IN THE NINTIES SPOUSE AT BEDSIDE A PATIENT BUT THEY PERERA NTO SEEM TO TALK TO EACH OTHER. DISCHARGE TO HOME TODAY PLANNED
[2020-08-13 08:50] VITALS: BP 94/50
[2020-08-13] MEDS ORDERED: ELIQUIS5 MG PO (10:39)
[2020-08-13] MEDS ORDERED: DECADRON6 MG PO (10:39)
[2020-08-13 11:08] VITALS: BP 94/50
--- NOTE | 2020-08-13 11:11 | NUR ---
ORDERS FOR DISCHARGE RECEIVED PATIENT PAIN AND BEEN WAITINT TO GO HOME. WILL GIVE EDUCATION INDICATED. PATIENT IS TO REMAIN ISOLATED FOR NOW AND GUIDLINES FOR CONTINUED PRECAUTIONS FOR COVID 19.
--- NOTE | 2020-08-13 11:17 | NUR ---
DR RANGEL IN AND ORDEREDD DISCHARGE TO HOME TODAY. PAPERWORK COMPLETED AND WILL SEND HOME WITH INSTRUCTION AND PRESCRIPTIONS CALLED IN. IV TO BE REMOVED AND PATIENT ASSISTED IN GATHERING BELONGINGS FOR DISCHARGE. MÓNICA IS ANXIOUS TO GO HOME.
[2020-08-13 12:28] VITALS: BP 94/49
--- NOTE | 2020-08-13 13:30 | NUR ---
PAPER WORK FO0R DISCHARGE COMPLETED AND APTIENT RECEIVED LAST DOSING OF REMDESIVIR LAST NIGHT. BLOOD SUGAR AT 196 AND GAVE THREE UNITS OF REGULAR ORDERED.
--- NOTE | 2020-08-13 15:45 | NUR ---
GAVE DISCHARGE PAPERWORK ORDERED. APEINT TO FOLLOW UP WITH DR OSORIO INDICATED. SHE IS TO MAINTAIN HER ISOLATION AND TO REST BETWEEN ACTIVITIES.
== END 2020-08-13 16:00 | disposition home or self-care (01) | DRG 177 ==
LOC: ED 16:32 → DU 19:16
PROVIDERS: Emergency Medicine; Hospitalist; Internal Medicine; Internal Medicine Infectious Disease; ADMIT Hospitalist; ATTEND Hospitalist
PROC: XW033E5 Introduction of Remdesivir Anti-infective into Peripheral Vein, Percutaneous Approach, New Technology Group 5 (ICD-10-PCS; principal; 2020-08-08)
PROC: XW13325 Transfusion of Convalescent Plasma (Nonautologous) into Peripheral Vein, Percutaneous Approach, New Technology Group 5 (ICD-10-PCS; 2020-08-08)
DX: U07.1 COVID-19 (principal); J12.89 Other viral pneumonia; E11.9 Type 2 diabetes mellitus without complications; I10 Essential (primary) hypertension; M81.0 Age-related osteoporosis without current pathological fracture; E78.00 Pure hypercholesterolemia, unspecified; Z79.899 Other long term (current) drug therapy
CPT/HCPCS: 36600; 82962; 83880; 85378; 87804; G0378; J0456; J0696; J1100; J1200; J1650; J3535